=== PATIENT | male | born 1965 | race Caucasian/White ===

== ENCOUNTER → 2016-11-20 | Outpatient (CLI) | payer BC ==
[2016-11-20 11:43] LABS: HEMATOCRIT 47.4 % (42.0-52.0); MEAN CORPUSCULAR HEMOGLOBIN 30.8 PG (27-31); MEAN CORPUSCULAR HGB CONC 33.8 g/dL (33-37); MEAN PLATELET VOLUME 8.9 FL (7.4-12.2); RDW COEFFICIENT OF VARIATION 13.4 % (11.5-14.5); RED BLOOD COUNT 5.2 10^6/uL (4.70-6.10); WHITE BLOOD COUNT 7.72 10^3/uL (4.8-10.8)
[2016-11-20 12:13] LABS: ASPARTATE AMINO TRANSFERASE 75 IU/L (21-57); BILIRUBIN,TOTAL 0.7 mg/dL (0.3-1.2); BLOOD UREA NITROGEN 19 mg/dL (7-22); BUN/CREATININE RATIO 17.27 (6-20); CALCIUM 9.5 mg/dL (8.7-10.7); CHLORIDE 106 meq/L (98-112); CREATININE 1.1 mg/dL (0.70-1.50); EST GLOMERULAR FILTRATION > 60 (>60 ml/min/1.73m(2)); GLUCOSE 95 mg/dL (78-110); HDL CHOLESTEROL 63 mg/dL (40-150); POTASSIUM 4.4 meq/L (3.8-5.2); SODIUM 139 meq/L (135-145); TOTAL PROTEIN 7.3 g/dL (6.1-8.0); TRIGLYCERIDES 125 mg/dL (44-200)
== END ==
LOC: LAB 11-14 11:39
PROVIDERS: ATTEND Obstetrics & Gynecology Gynecology
DX: Z00.00 Encounter for general adult medical examination without abnormal findings (principal); Z12.5 Encounter for screening for malignant neoplasm of prostate
CPT/HCPCS: 36415; 80053; 80061; 84443; 85027; G0103

== ENCOUNTER 2016-11-22 09:19 | Day surgery (SDC) | payer BC ==
[~2016-11-22 09:19] MED LIST: LIDOCAINE W/ SODIUM BICARB 0.5 ML SYR ONE; Lactated Ringers 1,000 ML PRIMARY IV ONE
--- NOTE | 2016-11-22 11:49 | GEN.OPNOTE ---
EGD / Colonoscopy Report Surgery Date: 11/22/16 Preoperative Diagnosis: GERD. Colon cancer screening. Bright red blood per rectum. Postoperative Diagnosis: Same. Procedure: 1 esophagogastroduodenoscopy with biopsy. #2 complete colonoscopy. Surgeon: Marvin Crisostomo MD Anesthesia Provider: Steffi Chaidez CRNA Anesthesia Type: MAC Indications: See preoperative diagnosis. EGD Findings: Esophagus: [Normal] GE Junction : [No significant inflammation] Fundus : [Normal] Body : [Normal] Prepyloric : [Mild erythema] Small Intestine : [Normal] A lubricated flexible upper endoscope was inserted and passed through the esophagus and stomach into the duodenum. The duodenum and duodenal bulb were unremarkable. The pyloric channel was widely patent. Entire stomach looked unremarkable with the exception of some erythema in the antrum. Multiple biopsies were taken. Hemostasis was assured. Air was aspirated. The scope was withdrawn into the distal esophagus. Biopsies were taken at and above the Z line for his history of reflux. Hemostasis was assured. The scope was withdrawn through the remainder of a normal-appearing esophagus and brought through the hypopharynx under suction completing that portion of the procedure. Colonoscopy Findings: Prep : [Good] Cecum : [Normal] Ascending : [Normal] Transverse : [Normal] Sigmoid : [Normal] Rectum : [Normal. Scope was retroflexed. Mild internal hemorrhoids.] Digital Rectal Exam : [Prostate of normal size and consistency.] Anoscopy: mild internal hemorrhoids. A lubricated flexible colonoscope was inserted and passed to the blind end of the cecum. Air was aspirated as the scope was withdrawn. Entire colonoscopy was normal without polyp, tumor, neoplastic mass, infectious or inflammatory process. There is some mild internal hemorrhoids. Nothing requiring local treatment. The scope was withdrawn completing the procedure. Patient tolerated all aspects of the procedure well without complication. He was taken to outpatient surgery in stable condition. The patient in my office on an as-needed basis. We will call the biopsy results and plan therapy as appropriate. Recommend colonoscopy in 10 years.
[2016-11-22 14:02] VITALS: RESP 14
[2016-11-22 14:17] VITALS: TEMP 97.8
== END 2016-11-22 12:15 | disposition home or self-care (01) ==
LOC: SDSC 09:19
PROVIDERS: ATTEND Surgery
DX: K62.5 Hemorrhage of anus and rectum (principal); K21.9 Gastro-esophageal reflux disease without esophagitis; Z12.11 Encounter for screening for malignant neoplasm of colon
CPT/HCPCS: 43239; 45378; J2704; J7120

== ENCOUNTER 2017-01-11 07:18 | Emergency (ER) | payer BC ==
[2017-01-11] MEDS ORDERED: MORPHINE SULFATE 4 MG/1 ML IVP ONE ×2 (07:30→09:27)
[2017-01-11] MEDS ORDERED: MORPHINE SULFATE 4 MG/1 ML ONE (07:30)
[2017-01-11] MEDS ORDERED: MORPHINE SULFATE 2 MG/1 ML IVP ONE (07:39)
[2017-01-11] MEDS ORDERED: Sodium Chloride 0.9% 1,000 ML PRIMARY IV ONE (07:39)
[2017-01-11] MEDS ORDERED: ceFAZolin Inj 1gm (Premix) 1 GM in Dextrose 1 BAG IV ONE (07:39)
[2017-01-11] MEDS ORDERED: NORMAL SALINE 10 ML SYRINGE FLUSH IVP PRN (07:39)
[2017-01-11] MEDS ORDERED: DIPH,PERTUSS,TET(ADACEL) VAC/PF 0.5 ML (Tdap) IM ONE (07:39)
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
[2017-01-11 07:53] LABS: BLOOD UREA NITROGEN 11 mg/dL (7-22); BUN/CREATININE RATIO 9.16 (6-20); CALCIUM 8.9 mg/dL (8.7-10.7); EST GLOMERULAR FILTRATION > 60 (>60 ml/min/1.73m(2)); SERUM ALBUMIN 4.3 g/dL (3.5-4.8)
[2017-01-11 07:54] VITALS: RESP 16
[2017-01-11 07:54] LABS: BASOPHILS # (AUTO) 0.07 10*3/UL; BASOPHILS % (AUTO) 0.9 % (0-1); EOSINOPHILS # (AUTO) 0.29 10*3/UL; EOSINOPHILS % (AUTO) 3.6 % (0-8); HEMATOCRIT 46.6 % (42.0-52.0); LIPASE 79 IU/L (23-300); LYMPHOCYTES # (AUTO) 3.06 10*3/uL; MEAN CORPUSCULAR HEMOGLOBIN 30.9 PG (27-31); MEAN CORPUSCULAR HGB CONC 34.3 g/dL (33-37); MEAN CORPUSCULAR VOLUME 90.1 FL (80-90); MEAN PLATELET VOLUME 9.2 FL (7.4-12.2); MONOCYTES # (AUTO) 0.58 10*3/UL (0.3-0.8); MONOCYTES % (AUTO) 7.3 % (5-15); NEUTROPHILS # (AUTO) 3.95 10*3/UL; NEUTROPHILS % (AUTO) 49.4 % (50-80); PLATELET MORPHOLOGY COMMENT NORMAL MORPHOLOGY (NORM); RBC MORPHOLOGY COMMENT NORMAL MORPHOLOGY (NORM); RED BLOOD COUNT 5.17 10^6/uL (4.70-6.10); WBC MORPHOLOGY COMMENT NORMAL MORPHOLOGY (NORM)
--- NOTE | 2017-01-11 07:56 | EKG ---
[address] [address] Measurements Intervals [place] Rate: 81 P: 79 HI: 180 QRS: 70 QRSD: 82 T: 51 QT: 369 QTc: 406 Interpretive Statements SINUS RHYTHM NONSPECIFIC T-WAVE ABNORMALITY No previous ECG available for comparison Electronically Signed On 01-13-17 12:17:21 MDT by Trev Willson MD [email or web address]
[2017-01-11 07:59] LABS: MAGNESIUM 2.3 mg/dL (1.6-2.4)
--- NOTE | 2017-01-11 09:27 | DI ---
RIGHT FOOT, 01/11/2017 7:39 AM: Clinical History: Trauma. Previous Exam: None at this facility. 3 views are submitted. There are fractures involving the base of the fourth and third metatarsal bone s as well as the proximal third of the second metatarsal bone. No definite intra-articular involvemen t is identified, but there is widening of the joint spaces between the tarsal navicular bone and the medial and intermediate cuneiform bones and between the cuboid bone and the lateral cuneiform bone. T here may also be widening of the joint space between the medial cuneiform bone and the first metatars al bone. Based on the plantar angulation of the distal fracture fragment of the second metatarsal bon e, and the location of the right knee new the joint spaces, this patient probably sustained a hyperpl astic or flexion injury with partial tears or sprains of the ligaments associated with these widened joint spaces. Readin. Fractures of the base of the third and fourth metatarsal bones in the proximal third of the secon d metatarsal bone without definite intra-articular involvement. 2. There is widening of the joint spaces between the tarsal navicular bone and the medial and interm ediate cuneiform bones and between the lateral cuneiform bone and the cuboid bone suggesting injury t o the ligaments associated with the joint spaces.
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
--- NOTE | 2017-01-11 09:33 | DI ---
RIGHT HAND, 01/11/2017 7:39 AM: Clinical History: Right hand trauma. The films are labeled as postreduction films. Previous Exam: None at this facility. 3 views are submitted. There is no acute soft tissue, osseous, or joint abnormality. Reading: Normal right hand exam.
[2017-01-11 10:00] LABS: BILIRUBIN,URINE NEGATIVE (NEG); COLOR,URINE YELLOW; GLUCOSE, URINE (UA) NEGATIVE (NEG); NITRATE,URINE NEGATIVE (NEG); OCCULT BLOOD,URINE NEGATIVE (NEG); PROTEIN,URINE NEGATIVE (NEG); UROBILINOGEN,URINE 0.2 EU/dL (0.2)
[2017-01-11 10:05] LABS: CLARITY,URINE CLEAR (CLEAR); URINE SAMPLE TYPE CLEAN CATCH URINE
[2017-01-11 10:06] LABS: URINE SAMPLE TYPE CLEAN CATCH URINE
[2017-01-11 10:10] LABS: AMPHETAMINE SCREEN NEGATIVE (NEG); CANNABINOID SCREEN,URINE POSITIVE (NEG); COCAINE SCREEN NEGATIVE (NEG); METHADONE URINE SCREEN NEGATIVE (NEG); METHAMPHETAMINES SCREEN,URINE NEGATIVE (NEG); OPIATE SCREEN,URINE POSITIVE (NEG)
[2017-01-11 10:47] VITALS: TEMP 97.2
[2017-01-11] MEDS ORDERED: oxyCODONE-ACETAMINOPHEN 5-325 TAB PO ONE (10:58)
[2017-01-11] MEDS ORDERED: KETOROLAC 15 MG/1 ML VIAL IVP ONE (10:59)
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
== END 2017-01-11 11:46 | disposition home or self-care (01) ==
LOC: ER 07:18
DX: S61.210A Laceration without foreign body of right index finger without damage to nail, initial encounter (principal); S82.841A Displaced bimalleolar fracture of right lower leg, initial encounter for closed fracture; S92.331A Displaced fracture of third metatarsal bone, right foot, initial encounter for closed fracture; S92.341A Displaced fracture of fourth metatarsal bone, right foot, initial encounter for closed fracture; F10.129 Alcohol abuse with intoxication, unspecified; S20.212A Contusion of left front wall of thorax, initial encounter; R22.1 Localized swelling, mass and lump, neck; S90.01XA Contusion of right ankle, initial encounter; V44.5XXA Car driver injured in collision with heavy transport vehicle or bus in traffic accident, initial encounter
CPT/HCPCS: 70450; 70498; 71010; 71260; 73130; 73610; 73630; 73700; 74177; 80053; 80305; 80320; 81003; 82150; 83690; 83735; 84443; 85025; 85610; 90471; 93005; 93010; 96361; 96365; 96375; 96376; 99284; J0690; J1885; J2270; J7030

== ENCOUNTER 2017-01-21 10:54 | Day surgery (SDC) | payer BC ==
[~2017-01-21 10:54] MED LIST changes: +ceFAZolin Inj 2gm (Premix) 50 ML IV ONE
[2017-01-21] MEDS ORDERED: LIDOCAINE 2%/ EPI 1:200,000 - 20 ML VIAL ONE (11:12)
[2017-01-21] MEDS ORDERED: MIDAZOLAM 5 MG/1 ML ONE (11:12)
[2017-01-21] MEDS ORDERED: DEXAMETHASONE SOD PHOSPHATE 4 MG/1 ML VIAL ONE (11:12)
[2017-01-21] MEDS ORDERED: fentaNYL Inj 250 MCG/5 ML VIAL ONE (11:13)
[2017-01-21] MEDS ORDERED: BUPivacaine Inj 0.5% PF (5mg/ml) 30ml vial ONE (11:13)
[2017-01-21 11:21] VITALS: RESP 18
[2017-01-21] MEDS ORDERED: Pantoprazole Inj 40 MG in Normal Saline Flush 10 ML IVP ONE (11:30)
[2017-01-21] MEDS ORDERED: PANTOPRAZOLE IV 40 MG VIAL ONE (11:34)
[2017-01-21] MEDS ORDERED: Sodium Chloride 0.9% 0 ML IV ONE (11:35)
[2017-01-21] MEDS ORDERED: BUPivacaine Inj 0.25% PF - 10ml vial ONE ×2 (12:33→14:45)
[2017-01-21] MEDS ORDERED: LIDOCAINE MPF 2% - 5 ML (20 MG/1 ML) ONE (12:47)
[2017-01-21] MEDS ORDERED: GLYCOPYRROLATE 0.2 MG/1 ML VIAL ONE (12:53)
--- NOTE | 2017-01-21 13:01 | CRNA.PROCE ---
Nerve Block Documentation - - Type of Nerve Block Used: Right Popliteal Fossa Block Position for Nerve Block: Prone Moniters Used During Block: EKG, SPO2, NIBP Oxygen Sumpplented: Yes Sedation Used - Enter Amount in Comment Field: Midazolam (mg): Yes (3mg), Fentanyl (mcg): Yes (100mcg) Skin Prep Used: ChloroPrep Draped: No Technique: Nerve Stimulator Nerve Block Needle Used: 80 mm ProBlk II Stimulation Hz: 2 Stimulation Staring mA: 1.4 Stimulation Ending mA: 0.48 Local Anesthetic - Enter Amt in Comment Field: 0.5 % Bupivacaine Plain (mL): Yes (20ml), 2 % Xylocaine with Epinephrine 1:200,000 (mL): Yes (20ml) Additives to Nerve Blocks: Dexamethasone (mL): Yes (8mg(2ml))
--- NOTE | 2017-01-21 13:03 | CRNA.PROCE ---
Nerve Block Documentation - - Type of Nerve Block Used: Rigth Saphenous Nerve Block @ Level of Tibial Tuberosity Position for Nerve Block: Prone Moniters Used During Block: EKG, SPO2, NIBP Nerve Block Needle Used: Other (25ga 1.5 inch hypo) Local Anesthetic - Enter Amt in Comment Field: 0.5 % Bupivacaine Plain (mL): Yes (5ml), 2 % Xylocaine with Epinephrine 1:200,000 (mL): Yes (5ml)
[2017-01-21] MEDS ORDERED: Lactated Ringers 1,000 ML PRIMARY IV ONE (13:05)
[2017-01-21] MEDS ORDERED: KETAMINE 100 MG/1 ML - 5 ML ONE (13:33)
[2017-01-21] MEDS ORDERED: SUFENTANIL 50 MCG/1 ML ONE (14:05)
[2017-01-21] MEDS ORDERED: BISACODYL 10 MG SUPPOSITORY RECTAL PRN (14:53)
[2017-01-21] MEDS ORDERED: MAG HYDROX/AL HYDROX/SIMETH 30 ML SUSP PO PRN (14:53)
[2017-01-21] MEDS ORDERED: BISACODYL 5 MG TABLET PO PRN (14:53)
[2017-01-21] MEDS ORDERED: Prochlorperazine Tab 10 MG TAB PO PRN (14:53)
[2017-01-21] MEDS ORDERED: HYDROcodone-APAP 10 MG-325 MG TABLET PO PRN (14:53)
[2017-01-21] MEDS ORDERED: Ondansetron ODT Tab 8 MG TAB PO PRN (14:53)
[2017-01-21] MEDS ORDERED: CALCIUM CARBONATE 500 MG (TUMS) CHEWABLE TABLET PO PRN (14:53)
[2017-01-21] MEDS ORDERED: IBUPROFEN 400 MG TABLET PO PRN (14:53)
[2017-01-21] MEDS ORDERED: NORMAL SALINE 10 ML SYRINGE FLUSH IVP PRN (14:53)
[2017-01-21] MEDS ORDERED: ONDANSETRON 4 MG/2 ML VIAL IVP PRN (14:53)
[2017-01-21] MEDS ORDERED: diphenhydrAMINE 25 MG CAPSULE PO PRN (14:53)
[2017-01-21] MEDS ORDERED: ACETAMINOPHEN 325 MG TABLET PO PRN (14:53)
[2017-01-21] MEDS ORDERED: IPRATROPIUM/ALBUTEROL SULFATE 3 ML NEB NEB ONE ×2 (14:59→15:00)
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
[2017-01-21 17:08] VITALS: TEMP 98.4
== END 2017-01-21 16:48 | disposition home or self-care (01) ==
LOC: SDSC 10:54
PROVIDERS: ATTEND Orthopaedic Surgery
DX: S82.841A Displaced bimalleolar fracture of right lower leg, initial encounter for closed fracture (principal); S92.321A Displaced fracture of second metatarsal bone, right foot, initial encounter for closed fracture; S92.331A Displaced fracture of third metatarsal bone, right foot, initial encounter for closed fracture; S92.341A Displaced fracture of fourth metatarsal bone, right foot, initial encounter for closed fracture
CPT/HCPCS: 27814; 28485 ×3; 76001; 94640; J0690; J2704; J3010; J7620; J1100; J2001; J2250; J3490; J7050; J7120

== ENCOUNTER → 2017-02-03 | Outpatient (CLI) | payer BC ==
--- NOTE | 2017-02-03 13:37 | DI ---
XR FOOT COMPLETE MIN 3VW,02/03/2017 8:51 AM: Clinical History: Right foot and ankle pain. Previous Exam: January 11, 2017 Findings: 3 views of the right foot are obtained, and demonstrate screw and plate fixation of the second ray sp anning the Lisfranc joint. There is also fusion of the third tarsometatarsal joint. There is K wire fixation of fourth tarsometa tarsal joint. There is screw and plate fixation of the distal fibula and cortical screw placement through the dista l right tibia as well as percutaneous K wires fixation of the medial malleolar fracture. Impression: Postsurgical changes and soft tissue thickening as above.
--- NOTE | 2017-02-03 14:17 | DI ---
XR ANKLE COMPLETE MIN 3VW,02/03/2017 8:51 AM: Clinical History: Right foot and ankle pain. Previous Exam: None at this facility. Findings: 3 views of the right ankle are obtained, and demonstrate postsurgical changes consistent with fixatio n of the distal fibula as well as medial malleolus and the distal tibiofibular joint. Postsurgical changes are also noted at the Lisfranc fracture of the mid foot. Impression: Postsurgical changes as above.
== END ==
LOC: ORTHO 08:47
PROVIDERS: ATTEND Orthopaedic Surgery
DX: S82.841E Displaced bimalleolar fracture of right lower leg, subsequent encounter for open fracture type I or II with routine healing (principal); S93.324A Dislocation of tarsometatarsal joint of right foot, initial encounter
CPT/HCPCS: 73610; 73630

== ENCOUNTER 2017-04-07 17:15 | Inpatient (IN) | payer BC ==
[2017-04-07] MEDS ORDERED: NORMAL SALINE 10 ML SYRINGE FLUSH IVP PRN ×4 (17:27→19:45)
[2017-04-07] MEDS ORDERED: Sodium Chloride 0.9% 1,000 ML PRIMARY IV ONE (17:27)
[2017-04-07] MEDS ORDERED: Pantoprazole Inj 80 MG in Normal Saline Flush 10 ML IVP ONE (17:29)
[2017-04-07 17:45] LABS: BASOPHILS # (AUTO) 0.05 10*3/UL; BASOPHILS % (AUTO) 0.5 % (0-1); HEMATOCRIT 41.1 % (42.0-52.0); HEMOGLOBIN 13.3 g/dL (14.0-18.0); LYMPHOCYTES # (AUTO) 1.75 10*3/uL; MEAN CORPUSCULAR HGB CONC 32.4 g/dL (33-37); MEAN CORPUSCULAR VOLUME 92.6 FL (80-90); MEAN PLATELET VOLUME 9.6 FL (7.4-12.2); MONOCYTES # (AUTO) 0.73 10*3/UL (0.3-0.8); MONOCYTES % (AUTO) 7.2 % (5-15); NEUTROPHILS # (AUTO) 7.32 10*3/UL; NEUTROPHILS % (AUTO) 72.4 % (50-80); RED BLOOD COUNT 4.44 10^6/uL (4.70-6.10)
[2017-04-07 17:46] LABS: PLATELET MORPHOLOGY COMMENT NORMAL MORPHOLOGY (NORM); RBC MORPHOLOGY COMMENT NORMAL MORPHOLOGY (NORM); WBC MORPHOLOGY COMMENT NORMAL MORPHOLOGY (NORM)
[2017-04-07 17:52] LABS: BLOOD UREA NITROGEN 39 mg/dL (7-22); BUN/CREATININE RATIO 43.33 (6-20); CALCIUM 8.8 mg/dL (8.7-10.7); EST GLOMERULAR FILTRATION > 60 (>60 ml/min/1.73m(2)); LIPASE 36 IU/L (23-300); SERUM ALBUMIN 4.3 g/dL (3.5-4.8)
[2017-04-07] MEDS ORDERED: MIDAZOLAM 5 MG/1 ML ONE (17:59)
[2017-04-07] MEDS ORDERED: Lactated Ringers 1,000 ML PRIMARY IV SCH (18:00)
[2017-04-07 18:04] LABS: C-REACTIVE PROTEIN 1.5 mg/dL (0.0-0.9); MAGNESIUM 2.1 mg/dL (1.6-2.4)
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
[2017-04-07] MEDS ORDERED: PHENYLEPHRINE 10,000 MCG/1 ML VIAL ONE (18:32)
[2017-04-07] MEDS ORDERED: ePHEDrine Inj 50 MG/ML AMP ONE (18:33)
[2017-04-07] MEDS ORDERED: Sodium Chloride 0.9% 0 ML ONE (18:38)
[2017-04-07] MEDS ORDERED: Sodium Chloride 0.9% 1,000 ML ONE (18:39)
[2017-04-07] MEDS ORDERED: Pantoprazole Inj 40 MG in Normal Saline Flush 10 ML IVP SCH (19:15)
[2017-04-07] MEDS ORDERED: ONDANSETRON 4 MG/2 ML VIAL IV PRN ×2 (19:15→19:45)
[2017-04-07] MEDS ORDERED: LIDOCAINE W/ SODIUM BICARB 0.5 ML SYR SUBD PRN (19:15)
--- NOTE | 2017-04-07 19:23 | GEN.OPNOTE ---
EGD Operative Note Surgery Date: 04/07/17 Preoperative Diagnosis: Upper gastrointestinal bleed. Postoperative Diagnosis: Upper gastrointestinal bleed. Presumed Leila-Jara tear. Procedure: Esophagogastroduodenoscopy with control of bleeding with coagulation. Surgeon: Marvin Crisostomo MD Anesthesia Provider: Steffi Chaidez CRNA Anesthesia Type: MAC Indications: Patient is a 52-year-old male had been drinking last night. He got an upset stomach. He threw up several times and according to the there were several clots of obvious blood. He continued to pass melanotic stools throughout the day. He presented to the emergency room. He was evaluated and taken for upper endoscopy. Findings: Esophagus: [Normal] GE Junction : [Continual slow blood drip of bright red blood from the GE junction.] Fundus : [Old blood and clot] Body : [Old blood] Prepyloric : [Old blood] Small Intestine : [Relatively clear with small amounts of old blood] A lubricated flexible upper endoscope was inserted and passed through the esophagus and stomach into the duodenum. The duodenum was unremarkable. There was old blood throughout the stomach. 1400 mL of bloody fluid was cleared from the stomach. No bleeding source was seen distally. The scope was retroflexed. There is a slow continual drip of bright red blood from the GE junction. This was irrigated clear. I never saw an obvious tear. A biopsy forceps was hooked to electrocautery and passed up to the drip. Coagulation was applied in several locations with sensation of the bright red bleeding. The area was rinsed and watch for several minutes with no further bleeding. The scope was straightened and withdrawn into the distal esophagus. There is no new blood. The scope was advanced into the stomach and retroflexed again. Again there was control of the bleeding. Air was aspirated. As much fluid as possible was aspirated. The scope was withdrawn into the distal esophagus. Again there was no further bleeding. The scope was withdrawn through the remainder of a normal- appearing esophagus and brought through the hypopharynx under suction completing the procedure. Patient tolerated the procedure well without complication. He was taken to outpatient surgery in stable condition. Patient will be admitted to the hospitalist service for observation. They prefer the ICU. I will be available to we scope him as needed. We will plan serial hematocrits. Keep the patient nothing by mouth. Keep him on high-dose Protonix. We will also start Carafate. Estimated Blood Loss (mL): 10 (1400 mL of bloody fluid in his stomach.) Fluids: 1800 mL of crystalloid. Pathology: No specimens. Complications: None.
[2017-04-07] MEDS ORDERED: Ondansetron ODT Tab 4 MG TAB PO PRN (19:45)
[2017-04-07] MEDS: Sodium Chloride 0.9% 1,000 ML PRIMARY IV SCH (19:50)
[2017-04-07 20:12] LABS: BASOPHILS # (AUTO) 0.04 10*3/UL; BASOPHILS % (AUTO) 0.4 % (0-1); EOSINOPHILS # (AUTO) 0.19 10*3/UL; EOSINOPHILS % (AUTO) 1.7 % (0-8); HEMATOCRIT 34.7 % (42.0-52.0); HEMOGLOBIN 11.1 g/dL (14.0-18.0); LYMPHOCYTES # (AUTO) 2.05 10*3/uL; MEAN CORPUSCULAR HEMOGLOBIN 29.8 PG (27-31); MEAN CORPUSCULAR VOLUME 93.3 FL (80-90); MONOCYTES # (AUTO) 0.99 10*3/UL (0.3-0.8); MONOCYTES % (AUTO) 8.8 % (5-15); NEUTROPHILS # (AUTO) 7.96 10*3/UL; NEUTROPHILS % (AUTO) 70.4 % (50-80); PLATELET MORPHOLOGY COMMENT NORMAL MORPHOLOGY (NORM); RBC MORPHOLOGY COMMENT NORMAL MORPHOLOGY (NORM); RED BLOOD COUNT 3.72 10^6/uL (4.70-6.10); WBC MORPHOLOGY COMMENT NORMAL MORPHOLOGY (NORM)
[2017-04-07] MEDS: Sucralfate Tab 1 GM TAB PO SCH ×2 (20:23→23:14)
[2017-04-07] MEDS: BuPROPion SR Tab 150 MG TAB PO SCH (20:23)
[2017-04-07] MEDS ORDERED: LORazepam 2 MG/1 ML VIAL IVP PRN (21:09)
[2017-04-07] MEDS ORDERED: LORazepam Inj(ETOH withdrawal) 2 MG/ML VIAL IVP PRN (21:09)
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
[2017-04-08 00:04] LABS: HEMATOCRIT 31.7 % (42.0-52.0); HEMOGLOBIN 10.2 g/dL (14.0-18.0)
[2017-04-08] MEDS: Sodium Chloride 0.9% 1,000 ML PRIMARY IV SCH (02:00)
[2017-04-08 03:51] LABS: HEMATOCRIT 29.8 % (42.0-52.0); HEMOGLOBIN 9.8 g/dL (14.0-18.0)
[2017-04-08 04:00] LABS: BLOOD UREA NITROGEN 26 mg/dL (7-22); BUN/CREATININE RATIO 37.14 (6-20); CALCIUM 7.8 mg/dL (8.7-10.7); EST GLOMERULAR FILTRATION > 60 (>60 ml/min/1.73m(2)); SERUM ALBUMIN 2.8 g/dL (3.5-4.8)
[2017-04-08] MEDS: Sucralfate Tab 1 GM TAB PO SCH ×2 (07:06→11:49)
[2017-04-08] MEDS ORDERED: Pantoprazole Inj 40 MG in Normal Saline Flush 10 ML IVP SCH ×2 (07:15→19:15)
[2017-04-08 08:19] LABS: HEMATOCRIT 30.4 % (42.0-52.0); HEMOGLOBIN 9.9 g/dL (14.0-18.0)
--- NOTE | 2017-04-08 08:56 | PDOC(PROG) ---
Date and Time of Service: 04/08/2017 8:40 AM Interval History: Feels better. No nausea. No chest pain or abdominal pain. Hungry. Has passed several smaller stools. Not the volume of black tarry stools he was having before. H&H Stable at approximately 10 and 30. No evidence of ongoing bleeding. Objective : Data - Labs CBC and BMP: 04/08/17 08:13 04/08/17 03:36 Labs - Last 24 Hours: Laboratory Results 04/07/17 04/08/17 04/08/17 Range/Units 20:00 00:00 03:36 WBC 11.29 H (4.8-10.8) 10^3/uL RBC 3.72 L (4.70-6.10) 10^6/uL Hgb 11.1 L 10.2 L 9.8 L (14.0-18.0) g/dL Hct 34.7 L 31.7 L 29.8 L (42.0-52.0) % MCV 93.3 H (80-90) FL MCH 29.8 (27-31) PG MCHC 32.0 L (33-37) g/dL RDW Std Deviation 47.0 (39-50) fL RDW Coeff of Tod 14.3 (11.5-14.5) % Plt Count 306 (140-350) 10*3/uL MPV 9.0 (7.4-12.2) FL Immature Gran % (Auto) 0.5 (0-5) % Neut % (Auto) 70.4 (50-80) % Lymph % (Auto) 18.2 (10-50) % [place] % (Auto) 8.8 (5-15) % Eos % (Auto) 1.7 (0-8) % Baso % (Auto) 0.4 (0-1) % Immature Gran # (Auto) 0.06 10*3/UL Neut # (Auto) 7.96 10*3/UL Lymph # (Auto) 2.05 10*3/uL [place] # (Auto) 0.99 H (0.3-0.8) 10*3/UL Eos # (Auto) 0.19 10*3/UL Baso # (Auto) 0.04 10*3/UL WBC Morphology Comment Normal morphology (NORM) Plt Morphology Comment Normal morphology (NORM) RBC Morph Comment Normal morphology (NORM) PT 10.5 (9.7-11.4) secs INR 0.99 (0.00-5.90) N/A Sodium 140 (135-145) meq/L Potassium 3.4 L D (3.8-5.2) meq/L Chloride 112 (98-112) meq/L Carbon Dioxide 23 (23-33) meq/L Anion Gap 5 (5-20) BUN 26 H (7-22) mg/dL Creatinine 0.7 (0.70-1.50) mg/dL Estimated GFR > 60 (>60 ml/min/1.73m(2)) BUN/Creatinine Ratio 37.14 H (6-20) Glucose 86 (78-110) mg/dL Calculated Osmolality 293.0 H (267-292) mOsm/kg Calcium 7.8 L (8.7-10.7) mg/dL Total Bilirubin 0.4 (0.3-1.2) mg/dL AST 19 L (21-57) IU/L ALT 35 (21-72) IU/L Alkaline Phosphatase 36 L (38-126) IU/L Total Protein 5.0 L (6.1-8.0) g/dL Albumin 2.8 L (3.5-4.8) g/dL Globulin 2.2 L (2.50-4.10) g/dL Albumin/Globulin Ratio 1.20 L (1.3-2.0) mg/g 07/18/17 Range/Units 08:13 WBC (4.8-10.8) 10^3/uL RBC (4.70-6.10) 10^6/uL Hgb 9.9 L (14.0-18.0) g/dL Hct 30.4 L (42.0-52.0) % MCV (80-90) FL MCH (27-31) PG MCHC (33-37) g/dL RDW Std Deviation (39-50) fL RDW Coeff of Tod (11.5-14.5) % Plt Count (140-350) 10*3/uL MPV (7.4-12.2) FL Immature Gran % (Auto) (0-5) % Neut % (Auto) (50-80) % Lymph % (Auto) (10-50) % [place] % (Auto) (5-15) % Eos % (Auto) (0-8) % Baso % (Auto) (0-1) % Immature Gran # (Auto) 10*3/UL Neut # (Auto) 10*3/UL Lymph # (Auto) 10*3/uL [place] # (Auto) (0.3-0.8) 10*3/UL Eos # (Auto) 10*3/UL Baso # (Auto) 10*3/UL WBC Morphology Comment (NORM) Plt Morphology Comment (NORM) RBC Morph Comment (NORM) PT (9.7-11.4) secs INR (0.00-5.90) N/A Sodium (135-145) meq/L Potassium (3.8-5.2) meq/L Chloride (98-112) meq/L Carbon Dioxide (23-33) meq/L Anion Gap (5-20) BUN (7-22) mg/dL Creatinine (0.70-1.50) mg/dL Estimated GFR (>60 ml/min/1.73m(2)) BUN/Creatinine Ratio (6-20) Glucose (78-110) mg/dL Calculated Osmolality (267-292) mOsm/kg Calcium (8.7-10.7) mg/dL Total Bilirubin (0.3-1.2) mg/dL AST (21-57) IU/L ALT (21-72) IU/L Alkaline Phosphatase (38-126) IU/L Total Protein (6.1-8.0) g/dL Albumin (3.5-4.8) g/dL Globulin (2.50-4.10) g/dL Albumin/Globulin Ratio (1.3-2.0) mg/g - Vital Signs Vital Signs and I&O: Vital Signs - Last Taken Temperature 97.5 F 04/08/17 07:00 Pulse Rate 75 04/08/17 08:00 Respiratory Rate 10 L 04/08/17 08:00 Blood Pressure 123/66 04/08/17 08:00 Pulse Ox 92 04/08/17 08:00 Intake and Output (24hr x 4 totals) 04/06/17 04/07/17 04/08/17 04/09/17 05:59 05:59 05:59 05:59 Intake Total 1735 Output Total 1425 175 Balance 310 -175 Objective : Exam - General General Appearance: No Acute Distress, Cooperative - Respiratory Respiratory Exam: Clear to Auscultation - Bilaterally, Breathing Non Labored - Cardiovascular Cardiovascular Exam: RRR, No Murmur - GI/Abdominal GI/Abdominal Exam: Normal Bowel Sounds, Non Tender, Non Distended, Soft - Neurological Neurological Exam: Alert, Oriented x 3 - Psychiatric Psychiatric Exam: Normal Affect, Normal Mood Assessment and Plan - Patient Problems (1) Upper gastrointestinal bleed Current Visit: Yes Status: Acute Priority: High Diagnosis Date: 04/06/17 Comment: No evidence of ongoing bleeding. H&H has stabilized about where I expected them to. We will cut back on his IV fluids. We'll start him on clear liquids. Further recommendations per Dr. Juarez. Would probably observe another 24 hours. Recommend long-term pantoprazole. Discussed lifestyle modifications with the patient and his . Discussed with Dr. Juarez as well. I will be available if needed. Otherwise will sign off at this time.
[2017-04-08] MEDS ORDERED: Patch Removal PATCH TRANSDERM SCH (09:00)
[2017-04-08] MEDS ORDERED: POTASSIUM CHLORIDE 20 MEQ TAB PO SCH ×2 (09:00→21:00)
[2017-04-08] MEDS ORDERED: NICOTINE 21 MG /DAY PATCH TRANSDERM SCH (09:00)
[2017-04-08] MEDS: BuPROPion SR Tab 150 MG TAB PO SCH (09:07)
--- NOTE | 2017-04-08 10:35 | PDOC(PROG) ---
Interval History: No complaints no further bleeding H&H stable hemodynamically stable Objective : Data - Labs CBC and BMP: 04/08/17 08:13 04/08/17 03:36 Labs - Last 24 Hours: Laboratory Results 04/07/17 04/08/17 04/08/17 Range/Units 20:00 00:00 03:36 WBC 11.29 H (4.8-10.8) 10^3/uL RBC 3.72 L (4.70-6.10) 10^6/uL Hgb 11.1 L 10.2 L 9.8 L (14.0-18.0) g/dL Hct 34.7 L 31.7 L 29.8 L (42.0-52.0) % MCV 93.3 H (80-90) FL MCH 29.8 (27-31) PG MCHC 32.0 L (33-37) g/dL RDW Std Deviation 47.0 (39-50) fL RDW Coeff of Tod 14.3 (11.5-14.5) % Plt Count 306 (140-350) 10*3/uL MPV 9.0 (7.4-12.2) FL Immature Gran % (Auto) 0.5 (0-5) % Neut % (Auto) 70.4 (50-80) % Lymph % (Auto) 18.2 (10-50) % [place] % (Auto) 8.8 (5-15) % Eos % (Auto) 1.7 (0-8) % Baso % (Auto) 0.4 (0-1) % Immature Gran # (Auto) 0.06 10*3/UL Neut # (Auto) 7.96 10*3/UL Lymph # (Auto) 2.05 10*3/uL [place] # (Auto) 0.99 H (0.3-0.8) 10*3/UL Eos # (Auto) 0.19 10*3/UL Baso # (Auto) 0.04 10*3/UL WBC Morphology Comment Normal morphology (NORM) Plt Morphology Comment Normal morphology (NORM) RBC Morph Comment Normal morphology (NORM) PT 10.5 (9.7-11.4) secs INR 0.99 (0.00-5.90) N/A Sodium 140 (135-145) meq/L Potassium 3.4 L D (3.8-5.2) meq/L Chloride 112 (98-112) meq/L Carbon Dioxide 23 (23-33) meq/L Anion Gap 5 (5-20) BUN 26 H (7-22) mg/dL Creatinine 0.7 (0.70-1.50) mg/dL Estimated GFR > 60 (>60 ml/min/1.73m(2)) BUN/Creatinine Ratio 37.14 H (6-20) Glucose 86 (78-110) mg/dL Calculated Osmolality 293.0 H (267-292) mOsm/kg Calcium 7.8 L (8.7-10.7) mg/dL Total Bilirubin 0.4 (0.3-1.2) mg/dL AST 19 L (21-57) IU/L ALT 35 (21-72) IU/L Alkaline Phosphatase 36 L (38-126) IU/L Total Protein 5.0 L (6.1-8.0) g/dL Albumin 2.8 L (3.5-4.8) g/dL Globulin 2.2 L (2.50-4.10) g/dL Albumin/Globulin Ratio 1.20 L (1.3-2.0) mg/g /18/17 Range/Units 08:13 WBC (4.8-10.8) 10^3/uL RBC (4.70-6.10) 10^6/uL Hgb 9.9 L (14.0-18.0) g/dL Hct 30.4 L (42.0-52.0) % MCV (80-90) FL MCH (27-31) PG MCHC (33-37) g/dL RDW Std Deviation (39-50) fL RDW Coeff of Tod (11.5-14.5) % Plt Count (140-350) 10*3/uL MPV (7.4-12.2) FL Immature Gran % (Auto) (0-5) % Neut % (Auto) (50-80) % Lymph % (Auto) (10-50) % [place] % (Auto) (5-15) % Eos % (Auto) (0-8) % Baso % (Auto) (0-1) % Immature Gran # (Auto) 10*3/UL Neut # (Auto) 10*3/UL Lymph # (Auto) 10*3/uL [place] # (Auto) (0.3-0.8) 10*3/UL Eos # (Auto) 10*3/UL Baso # (Auto) 10*3/UL WBC Morphology Comment (NORM) Plt Morphology Comment (NORM) RBC Morph Comment (NORM) PT (9.7-11.4) secs INR (0.00-5.90) N/A Sodium (135-145) meq/L Potassium (3.8-5.2) meq/L Chloride (98-112) meq/L Carbon Dioxide (23-33) meq/L Anion Gap (5-20) BUN (7-22) mg/dL Creatinine (0.70-1.50) mg/dL Estimated GFR (>60 ml/min/1.73m(2)) BUN/Creatinine Ratio (6-20) Glucose (78-110) mg/dL Calculated Osmolality (267-292) mOsm/kg Calcium (8.7-10.7) mg/dL Total Bilirubin (0.3-1.2) mg/dL AST (21-57) IU/L ALT (21-72) IU/L Alkaline Phosphatase (38-126) IU/L Total Protein (6.1-8.0) g/dL Albumin (3.5-4.8) g/dL Globulin (2.50-4.10) g/dL Albumin/Globulin Ratio (1.3-2.0) mg/g Objective : Exam - General General Appearance: Cooperative - Respiratory Respiratory Exam: Clear to Auscultation - Bilaterally, Breathing Non Labored, Normal To Percussion - Cardiovascular Cardiovascular Exam: RRR, No Murmur, No Clicks, No Gallops - GI/Abdominal GI/Abdominal Exam: Non Tender, Non Distended, Soft - Neurological Neurological Exam: Alert, Oriented x 3 Assessment and Plan - Patient Problems (1) Upper gastrointestinal bleed Current Visit: Yes Status: Acute Priority: High Diagnosis Date: 04/06/17 Comment: H&H stable no ongoing bleeding clear liquid diet and advance as tolerated maybe tonight and observe for another 24 hours continue Protonix follow-up with the Dr. Crisostomo as outpatient. Continue [facility] protocol
[2017-04-08] MEDS ORDERED: LORazepam Inj(ETOH withdrawal) 2 MG/ML VIAL IVP PRN (11:06)
[2017-04-08] MEDS ORDERED: Ondansetron ODT Tab 4 MG TAB PO PRN (11:06)
[2017-04-08] MEDS ORDERED: LORazepam 2 MG/1 ML VIAL IVP PRN (11:06)
[2017-04-08] MEDS ORDERED: NORMAL SALINE 10 ML SYRINGE FLUSH IVP PRN (11:06)
[2017-04-08] MEDS ORDERED: ONDANSETRON 4 MG/2 ML VIAL IV PRN (11:06)
[2017-04-08] MEDS ORDERED: Sucralfate Tab 1 GM TAB PO SCH (16:00)
[2017-04-08 16:21] VITALS: RESP 18; TEMP 97.9
[2017-04-08 17:12] LABS: HEMATOCRIT 31.9 % (42.0-52.0); HEMOGLOBIN 10.1 g/dL (14.0-18.0); MEAN CORPUSCULAR HEMOGLOBIN 29.6 PG (27-31); MEAN CORPUSCULAR HGB CONC 31.7 g/dL (33-37); MEAN CORPUSCULAR VOLUME 93.5 FL (80-90); MEAN PLATELET VOLUME 9.2 FL (7.4-12.2); RED BLOOD COUNT 3.41 10^6/uL (4.70-6.10)
[2017-04-08] MEDS ORDERED: BuPROPion SR Tab 150 MG TAB PO SCH (21:00)
[2017-04-09] MEDS ORDERED: Patch Removal PATCH TRANSDERM SCH (09:00)
[2017-04-09] MEDS ORDERED: NICOTINE 21 MG /DAY PATCH TRANSDERM SCH (09:00)
--- NOTE | 2017-04-09 11:22 | DCSUMMARY ---
Hospitalization Summary Hospital Course: Final Discharge Diagnosis: Current Visit Problems Problem Status Priority Diagnosed Code Upper gastrointestinal bleed Acute High 04/06/17 K92.2 Diagnostic Data, Laboratory Data, and Procedures of Signifigance: Laboratory Results 04/07/17 04/07/17 04/08/17 Range/Units 17:35 20:00 00:00 WBC 10.11 11.29 H (4.8-10.8) 10^3/uL RBC 4.44 L 3.72 L (4.70-6.10) 10^6/uL Hgb 13.3 L 11.1 L 10.2 L (14.0-18.0) g/dL Hct 41.1 L 34.7 L 31.7 L (42.0-52.0) % MCV 92.6 H 93.3 H (80-90) FL MCH 30.0 29.8 (27-31) PG MCHC 32.4 L 32.0 L (33-37) g/dL RDW Std Deviation 47.9 47.0 (39-50) fL RDW Coeff of Tod 14.4 14.3 (11.5-14.5) % Plt Count 365 H 306 (140-350) 10*3/uL MPV 9.6 9.0 (7.4-12.2) FL Immature Gran % (Auto) 0.6 0.5 (0-5) % Neut % (Auto) 72.4 70.4 (50-80) % Lymph % (Auto) 17.3 18.2 (10-50) % Gilchrist % (Auto) 7.2 8.8 (5-15) % Eos % (Auto) 2.0 1.7 (0-8) % Baso % (Auto) 0.5 0.4 (0-1) % Immature Gran # (Auto) 0.06 0.06 10*3/UL Neut # (Auto) 7.32 7.96 10*3/UL Lymph # (Auto) 1.75 2.05 10*3/uL Gilchrist # (Auto) 0.73 0.99 H (0.3-0.8) 10*3/UL Eos # (Auto) 0.20 0.19 10*3/UL Baso # (Auto) 0.05 0.04 10*3/UL WBC Morphology Comment Normal morphology Normal morphology (NORM) Plt Morphology Comment Normal morphology Normal morphology (NORM) RBC Morph Comment Normal morphology Normal morphology (NORM) PT 10.2 (9.7-11.4) secs INR 0.96 (0.00-5.90) N/A Sodium 138 (135-145) meq/L Potassium 4.7 (3.8-5.2) meq/L Chloride 106 (98-112) meq/L Carbon Dioxide 23 (23-33) meq/L Anion Gap 9 (5-20) BUN 39 H (7-22) mg/dL Creatinine 0.9 (0.70-1.50) mg/dL Estimated GFR > 60 (>60 ml/min/1.73m(2)) BUN/Creatinine Ratio 43.33 H (6-20) Glucose 108 (78-110) mg/dL Calculated Osmolality 295.0 H (267-292) mOsm/kg Calcium 8.8 (8.7-10.7) mg/dL Magnesium 2.0 (1.6-2.4) mg/dL Total Bilirubin 0.9 (0.3-1.2) mg/dL AST 28 (21-57) IU/L ALT 49 (21-72) IU/L Alkaline Phosphatase 40 (38-126) IU/L C-Reactive Protein 1.5 H (0.0-0.9) mg/dL Total Protein 7.1 (6.1-8.0) g/dL Albumin 4.3 (3.5-4.8) g/dL Globulin 2.8 (2.50-4.10) g/dL Albumin/Globulin Ratio 1.50 (1.3-2.0) mg/g Amylase 46 (30-110) U/L Lipase 36 (23-300) IU/L Serum Alcohol < 10 (0-10) mg/dL Blood Type A POSITIVE Antibody Screen Negative Crossmatch See Detail 04/08/17 04/08/17 04/08/17 Range/Units 03:36 08:13 17:03 WBC 8.95 (4.8-10.8) 10^3/uL RBC 3.41 L (4.70-6.10) 10^6/uL Hgb 9.8 L 9.9 L 10.1 L (14.0-18.0) g/dL Hct 29.8 L 30.4 L 31.9 L (42.0-52.0) % MCV 93.5 H (80-90) FL MCH 29.6 (27-31) PG MCHC 31.7 L (33-37) g/dL RDW Std Deviation 48.5 (39-50) fL RDW Coeff of Tod 14.8 H (11.5-14.5) % Plt Count 297 (140-350) 10*3/uL MPV 9.2 (7.4-12.2) FL Immature Gran % (Auto) (0-5) % Neut % (Auto) (50-80) % Lymph % (Auto) (10-50) % Gilchrist % (Auto) (5-15) % Eos % (Auto) (0-8) % Baso % (Auto) (0-1) % Immature Gran # (Auto) 10*3/UL Neut # (Auto) 10*3/UL Lymph # (Auto) 10*3/uL Gilchrist # (Auto) (0.3-0.8) 10*3/UL Eos # (Auto) 10*3/UL Baso # (Auto) 10*3/UL WBC Morphology Comment (NORM) Plt Morphology Comment (NORM) RBC Morph Comment (NORM) PT 10.5 (9.7-11.4) secs INR 0.99 (0.00-5.90) N/A Sodium 140 (135-145) meq/L Potassium 3.4 L D (3.8-5.2) meq/L Chloride 112 (98-112) meq/L Carbon Dioxide 23 (23-33) meq/L Anion Gap 5 (5-20) BUN 26 H (7-22) mg/dL Creatinine 0.7 (0.70-1.50) mg/dL Estimated GFR > 60 (>60 ml/min/1.73m(2)) BUN/Creatinine Ratio 37.14 H (6-20) Glucose 86 (78-110) mg/dL Calculated Osmolality 293.0 H (267-292) mOsm/kg Calcium 7.8 L (8.7-10.7) mg/dL Magnesium (1.6-2.4) mg/dL Total Bilirubin 0.4 (0.3-1.2) mg/dL AST 19 L (21-57) IU/L ALT 35 (21-72) IU/L Alkaline Phosphatase 36 L (38-126) IU/L C-Reactive Protein (0.0-0.9) mg/dL Total Protein 5.0 L (6.1-8.0) g/dL Albumin 2.8 L (3.5-4.8) g/dL Globulin 2.2 L (2.50-4.10) g/dL Albumin/Globulin Ratio 1.20 L (1.3-2.0) mg/g Amylase (30-110) U/L Lipase (23-300) IU/L Serum Alcohol (0-10) mg/dL Blood Type Antibody Screen Crossmatch History and Physical pertinent to Admission: Course of Hospitalization: Very nice 52-year-old gentleman with the past medical history significant for alcohol use comes into the hospital with hematemesis and upper GI bleed was scoped by Dr. Crisotsomo which cauterized the lesion which she thought was a Leila- Jara tear. Patient had no further bleeding while in the hospital we had a long discussion and recommended he should be watched for 48 hours and the to be discharged morning of the . His diet was advanced he said that he was wanted do would be like and was taken about going home yesterday I told him this was not advised but he was freed it to do what he wanted since he is not on a hold I told him that he bleeds again he should go back to the ER and these things could also be fatal if not stopped and cauterized in time I told him not to take any aspirin I told him not to drink anymore alcohol offered him counseling and help he said now he has not does not have an issue or drinking. He decided to leave the night of the around the 6 PM Protonix was called at the pharmacy 40 twice a day for 2 months and when necessary he knows to follow-up with the Dr. Crisostomo and his primary care physician this was discussed with him yesterday and length during our discussion when he wanted to leave in the morning he said he will take care of all that. 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 As per discharge assessments above 2. Disposition: 3. Condition on discharge, stable and improved. 4. Diet: Advance as tolerated soft initially 5. Activities: resume normal activities 6. Follow-Up: 1. PCP 2. 7. Medications at the Time of Discharge: Home Medications Medication Instructions Recorded Confirmed Type Aspirin 325 mg PO DAILY 04/07/17 04/07/17 History Bupropion HCl [Wellbutrin] 150 mg PO BID 04/07/17 04/07/17 History Also instructed him to stop aspirin and he would continue with the Protonix 40 mg by mouth twice a day H was called in by the nurse at [facility] 8. Time, care, counseling and coordination of care for this discharge is greater than 30 minutes. Exam - Vitals Vital Signs: Vital Signs Temperature 97.9 F Temperature Source Temporal Artery Scan Pulse Rate [Pulse Oximeter] 81 Pulse Rate 81 Respiratory Rate 18 Blood Pressure [Right Arm] 117/75 Blood Pressure 117/75 Pulse Ox 95 Oxygen Delivery Method Room Air Height 5 ft 3 in Weight 88.088 kg Patient Problems - Patient Problem List (1) Upper gastrointestinal bleed Status: Acute Diagnosis Date: 04/06/17 Priority: High
== END 2017-04-08 18:47 | disposition home or self-care (01) | DRG 379 ==
LOC: ER 17:15 → SDSC 17:34 → ICU 19:14 → MED/SURG 04-08 10:31
PROVIDERS: ADMIT Internal Medicine; ATTEND Internal Medicine
PROC: 0W3P8ZZ Control Bleeding in Gastrointestinal Tract, Via Natural or Artificial Opening Endoscopic (ICD-10-PCS; principal; 2017-04-07 18:15)
DX: K92.2 Gastrointestinal hemorrhage, unspecified (principal); K22.6 Gastro-esophageal laceration-hemorrhage syndrome
CPT/HCPCS: 36415; 80053; 80320; 82150; 83690; 83735; 85014; 85018; 85025; 85027; 85610; 86140; 86850; 86900; 86901; 86922; 99283; 99284; J2250; J2370; J3490; J7030; J7040

== ENCOUNTER → 2017-04-09 | Outpatient (CLI) | payer BC ==
--- NOTE | 2017-04-09 12:12 | DI ---
RIGHT ANKLE, 04/09/2017 10:09 AM: Clinical History: Right ankle pain. Previous Exam: 01/11/2017; 02/03/2015. 3 views are submitted. The patient is status post ORIF of fractures of the distal fibula and the medi al malleolus. The fibular fracture site appears healed with anatomic alignment and position. There ar e 2 metallic K wires transfixing the fracture of the medial malleolus and the fracture lucency is sti ll visible with suggestion of sclerosis at the fracture margins. There is no periosteal new bone form ation. The ankle mortise is intact. There is osteoporosis involving the ankle and foot. Readin. Status post ORIF of fractures of the distal fibula and the medial malleolus. There is still a nadia ency at the site of the medial malleolar fracture. The distal fibular fracture has healed. 2. There is osteoporosis, presumably secondary to disuse.
--- NOTE | 2017-04-09 12:52 | DI ---
RIGHT FOOT, 04/09/2017 10:09 AM: Clinical History: Right foot pain. Previous Exam: 01/11/2017; 02/03/2017. 3 views are submitted. The metallic K wire transfixing the base of the fourth metatarsal bone to the cuboid bone has been removed, and that fracture has healed. The patient is status post arthrodesis of the lateral cuneiform bone with the third metatarsal bone in the arthrodesis is solid. The patient i s status post ORIF of a comminuted fracture of the second metatarsal bone with arthrodesis to the mid dle cuneiform bone. The arthrodesis appears solid, but there is still a lucency through the midshaft of the second metatarsal bone. There is diffuse osteoporosis of the foot presumably secondary to disu se. Readin. The fractures of the third and fourth metatarsal bones and the arthrodesis between the third meta tarsal bone and the lateral cuneiform bone have healed. 2. The arthrodesis between the medial cuneiform bone and the base of the second metatarsal bone has healed, but there is still a fracture lucency visible in the midshaft of the second metatarsal bone. 3. There is osteoporosis, presumably secondary to disuse.
== END ==
LOC: ORTHO 10:06
PROVIDERS: ATTEND Orthopaedic Surgery
DX: M79.671 Pain in right foot (principal); M25.571 Pain in right ankle and joints of right foot; S82.831E Other fracture of upper and lower end of right fibula, subsequent encounter for open fracture type I or II with routine healing; Z98.1 Arthrodesis status; S82.51 Displaced fracture of medial malleolus of right tibia
CPT/HCPCS: 73610; 73630

== ENCOUNTER → 2017-04-18 | Outpatient (CLI) | payer BC ==
--- NOTE | 2017-04-18 15:58 | EKG ---
[address] [place] [address] Measurements Intervals [place] Rate: 44 P: 58 HI: 160 QRS: 18 QRSD: 88 T: -6 QT: 420 QTc: 372 Interpretive Statements SINUS BRADYCARDIA Compared to ECG 01/11/2017 07:53:26 Sinus rhythm no longer present T-wave abnormality no longer present Electronically Signed On 04-21-17 08:49:52 MDT by Trev Willson MD [email or web address]
[2017-04-18 16:14] LABS: BLOOD UREA NITROGEN 8 mg/dL (7-22); BUN/CREATININE RATIO 8.88 (6-20); CALCIUM 9.1 mg/dL (8.7-10.7); EST GLOMERULAR FILTRATION > 60 (>60 ml/min/1.73m(2)); SERUM ALBUMIN 4.1 g/dL (3.5-4.8)
[2017-04-18 18:23] LABS: HEMATOCRIT 34.8 % (42.0-52.0); HEMOGLOBIN 11.1 g/dL (14.0-18.0); MEAN CORPUSCULAR VOLUME 94.1 FL (80-90)
[2017-04-18 18:24] LABS: BASOPHILS % (AUTO) 1.8 % (0-1); EOSINOPHILS % (AUTO) 6.5 % (0-8); MEAN CORPUSCULAR HGB CONC 31.9 g/dL (33-37); MEAN PLATELET VOLUME 9.7 FL (7.4-12.2); NEUTROPHILS # (AUTO) 2.89 10*3/UL; NEUTROPHILS % (AUTO) 48.2 % (50-80)
[2017-04-18 18:25] LABS: BASOPHILS # (AUTO) 0.11 10*3/UL; EOSINOPHILS # (AUTO) 0.39 10*3/UL; LYMPHOCYTES # (AUTO) 1.98 10*3/uL; PLATELET MORPHOLOGY COMMENT NORMAL MORPHOLOGY (NORM); RBC MORPHOLOGY COMMENT NORMAL MORPHOLOGY (NORM); WBC MORPHOLOGY COMMENT NORMAL MORPHOLOGY (NORM)
== END ==
LOC: LAB 15:28
PROVIDERS: ATTEND Orthopaedic Surgery
DX: Z01.812 Encounter for preprocedural laboratory examination (principal); Z01.810 Encounter for preprocedural cardiovascular examination; T84.84XA Pain due to internal orthopedic prosthetic devices, implants and grafts, initial encounter; R00.1 Bradycardia, unspecified
CPT/HCPCS: 36415; 80053; 85025; 93005; 93010

== ENCOUNTER 2017-04-28 05:48 | Day surgery (SDC) | payer BC ==
[2017-04-28] MEDS ORDERED: LIDOCAINE W/ SODIUM BICARB 0.5 ML SYR ONE (06:00)
[2017-04-28] MEDS ORDERED: ceFAZolin Inj 2gm (Premix) 50 ML IV ONE (06:00)
[2017-04-28] MEDS ORDERED: Lactated Ringers 1,000 ML PRIMARY IV ONE (06:00)
[2017-04-28 06:52] VITALS: RESP 14; TEMP 97.4
[2017-04-28] MEDS ORDERED: IPRATROPIUM/ALBUTEROL SULFATE 3 ML NEB NEB ONE ×2 (07:04)
[2017-04-28] MEDS ORDERED: KETAMINE 100 MG/1 ML - 5 ML ONE (07:10)
[2017-04-28] MEDS ORDERED: MIDAZOLAM 5 MG/1 ML ONE (07:10)
[2017-04-28] MEDS ORDERED: fentaNYL Inj 250 MCG/5 ML VIAL ONE (07:10)
[2017-04-28] MEDS ORDERED: FAMOTIDINE 20 MG/2 ML VIAL IVP ONE (07:11)
[2017-04-28] MEDS ORDERED: BUPIVACAINE 0.25% W/ EPI - 10 ML VIAL ONE (07:34)
[2017-04-28] MEDS ORDERED: HYDROcodone-APAP 5 MG -325 MG TABLET PO ONE ×2 (09:00→09:42)
== END 2017-04-28 10:25 | disposition home or self-care (01) ==
LOC: SDSC 05:48
PROVIDERS: ATTEND Orthopaedic Surgery
DX: T84.84XA Pain due to internal orthopedic prosthetic devices, implants and grafts, initial encounter (principal); M25.571 Pain in right ankle and joints of right foot
CPT/HCPCS: 20680; 76000; 94640; J0690; J2250; J2704; J3010; J7620; S0028; J7120